=== PATIENT | female | born 1940 | race Caucasian/White ===

== ENCOUNTER → 2016-11-10 | Outpatient (CLI) | payer OTHER, BC | LOC: MMPC 10:00 | PROVIDERS: ATTEND Podiatrist Foot & Ankle Surgery | DX: M79.671 Pain in right foot (principal); M79.672 Pain in left foot; B35.1 Tinea unguium; L60.0 Ingrowing nail; L60.3 Nail dystrophy; I73.9 Peripheral vascular disease, unspecified | CPT/HCPCS: 11720 ×2; 99202; G0463 ==

== ENCOUNTER → 2016-11-17 | Outpatient (CLI) | payer OTHER, BC | LOC: MMPC 11:11 | PROVIDERS: ATTEND Surgery | DX: L85.8 Other specified epidermal thickening (principal); D48.5 Neoplasm of uncertain behavior of skin | CPT/HCPCS: 99212; G0463 ==

== ENCOUNTER 2016-11-25 08:14 | Day surgery (SDC) | payer OTHER, BC ==
[~2016-11-25 08:14] MED LIST: LIDOCAINE HCL 1%/EPI 1:100,000 - 20 ML VIAL ONE; LIDOCAINE W/ SODIUM BICARB 0.5 ML SYR ONE; Lactated Ringers 1,000 ML PRIMARY IV ONE; MIDAZOLAM 5 MG/1 ML ONE; fentaNYL Inj 100 MCG/2 ML VIAL ONE
[2016-11-25] MEDS ORDERED: SODIUM BICARBONATE 8.4% - 50 ML VIAL ONE (08:15)
--- NOTE | 2016-11-25 09:58 | GEN.OPNOTE ---
Operative Note Surgery Date: 11/25/16 Preoperative Diagnosis: Skin lesion base of the neck. Skin lesion dorsum of left hand. Postoperative Diagnosis: Same. Procedure: Excision 1.5 cm skin lesion base of neck. Excision 8 mm skin lesion dorsum of left hand. Surgeon: Chapin Grant MD Anesthesia Provider: Collin Teresa CRNA Anesthesia Type: Local (1% Xylocaine with epinephrine and sodium bicarbonate per Chapin Grant M.D.), MAC Estimated Blood Loss (mL): 1 Fluids: 250 mL of crystalloid. Pathology: Specimen sent to pathology. Indications: Patient has had numerous skin cancers removed. These appear to be skin cancers at the base her neck and on the dorsum of her left hand. There are nodular and bothersome. She would like them removed. Findings: Skin lesions consistent with squamous cell carcinoma. Complications: None. Operative Summary: The patient was taken to the operating suite and placed on the operating table in a supine position with her left hand out on an arm board. She is given appropriate IV sedation by the RINA. A surgical timeout was done. I initially focused on the hand lesion. The area was infiltrated with 1% Xylocaine with epinephrine and bicarbonate. An elliptical excision was accomplished. A second deeper specimen was taken. The base of the wound was cauterized. Single layer skin closure was done with 3-0 Prolene. A Band-Aid was placed. Attention was turned to the neck lesion. The area was infiltrated with 1% Xylocaine with epinephrine and sodium bicarbonate. An elliptical excision was done. Cautery was used to control bleeding. The skin was closed with simple interrupted 3-0 Prolene sutures. A Band-Aid was placed. The patient tolerated the procedure well without complication. She was taken to outpatient surgery in stable condition. All counts were correct.
[2016-11-25 11:42] VITALS: RESP 24; TEMP 98.6
== END 2016-11-25 11:15 | disposition home or self-care (01) ==
LOC: SDSC 08:14
PROVIDERS: ATTEND Surgery
DX: L85.8 Other specified epidermal thickening (principal); L98.8 Other specified disorders of the skin and subcutaneous tissue
CPT/HCPCS: 11422 ×2; 11621 ×2; J2704; J3010; J2250; J7120

== ENCOUNTER → 2016-12-07 | Outpatient (CLI) | payer OTHER, BC | LOC: MMPC 11:11 | PROVIDERS: ATTEND Surgery | DX: Z48.02 Encounter for removal of sutures (principal); L98.8 Other specified disorders of the skin and subcutaneous tissue ==

== ENCOUNTER → 2017-01-16 | Outpatient (CLI) | payer OTHER, BC ==
--- NOTE | 2017-01-16 11:00 | DI ---
Clinical History: Annual Screening Previous Exam: August 27, 2014 Findings: CC and MLO views of both breasts are obtained, and demonstrate scattered fibroglandular elements. Computer aided diagnostics were applied. There is no mass, suspicious cluster of microcalcifications nor areas of architectural distortion. Impression: Normal Mammogram BIRADS: 1: Negative mammogram Recommendations: Annual screening. Note: Breast examination has been discussed and encouraged, and the patient informed to return if the re is any new palpable abnormality in the interval between screening. Overall imaging assessment: Negative mammogram.
== END ==
LOC: MAMMO 09:42
PROVIDERS: ATTEND Nurse Practitioner
DX: Z12.31 Encounter for screening mammogram for malignant neoplasm of breast (principal); N64.4 Mastodynia
CPT/HCPCS: G0202

== ENCOUNTER → 2017-01-19 | Outpatient (CLI) | payer OTHER, BC | LOC: MMPC 10:00 | PROVIDERS: ATTEND Podiatrist Foot & Ankle Surgery | DX: M79.674 Pain in right toe(s) (principal); M79.675 Pain in left toe(s); L60.3 Nail dystrophy; L60.0 Ingrowing nail; I73.9 Peripheral vascular disease, unspecified; B35.1 Tinea unguium | CPT/HCPCS: 11720 ×2; G0463 ==

== ENCOUNTER 2017-06-02 00:21 | Inpatient (IN) ==
[2017-06-02] MEDS ORDERED: ALBUTEROL SULFATE 2.5 MG/3 ML NEB ONE (00:26)
[2017-06-02] MEDS ORDERED: Sodium Chloride 0.9% 1,000 ML PRIMARY IV ONE (00:26)
[2017-06-02 00:33] LABS: Hematocrit [HCT] 38.9 % (37.0-47.0); Hemoglobin [HGB] 11.6 g/dL (12.0-16.0); MEAN CORPUSCULAR HEMOGLOBIN 29.7 PG (27-31); MEAN CORPUSCULAR HGB CONC 29.8 g/dL (33-37); MEAN CORPUSCULAR VOLUME 99.5 FL (81-99); MEAN PLATELET VOLUME 9.7 FL (7.4-12.2); RED BLOOD COUNT 3.91 10^6/uL (4.20-5.40)
--- NOTE | 2017-06-02 00:34 | PDOC ---
Dyspnea HPI - General Chief Complaint: Dyspnea Stated Complaint: SHORTNESS OF BREATH Date Seen by Provider: 06/02/17 Time Seen by Provider: 00:28 Source: POSITIVE: Patient, EMS Exam Limitations: POSITIVE: Clinical condition Treatment Prior to Arrival: REPORTS: Oxygen, Albuterol Neb Treatment, Other ( Solu-Medrol) Nurse's Notes Reviewed & Considered: Yes EMS Report Reviewed & Considered: Verbal - History of Present Illness Initial Comments: 76-year-old with hypoxia. Patient is long term patient was found to have oxygen saturation of 76% on room air. She received a DuoNeb, Solu-Medrol, and nasal cannula oxygen. She is unable to verbalize any history. No history was available from the nursing staff. Minimal history was obtained from review of the report from the long term. It appears she has some type of interstitial lung disease. Further review of systems is unavailable because the patient's inability to verbalize. Body Location Affected: REPORTS: Chest Timing: REPORTS: Unknown Duration: Unknown Severity: Severe Initiating Event: DENIES: Upper Respiratory Illness, Out of Medications, Sports , Exercise, Aspiration, Choking, Allergy, Exposure - Smoke, Exposure - Mold, Exposure - Other Allergen Context: REPORTS: Sleep Exacerbated By: REPORTS: Exertion Similar Symptoms Previously: Yes Recently seen/treated/hospitalized: No Any Prior Injuries Related to Current Complaint?: No - Patient Home Medications Home Medications: Home Medications Aspirin [Aspir 81] 81 mg PO DAILY 09/15/11 Calcium Citrate/Vitamin D3 [Citracal + D Caplet] 1 ea PO DAILY 09/15/11 Albuterol Sulfate [Proventil Hfa] 1 puff INH QID PRN puff 05/23/14 Arformoterol Tartrate [Brovana] 2 puff INH BID ml 05/23/14 Alendronate Sodium [Fosamax] 1 tab ORAL WEEKLY #4 tab 03/12/15 predniSONE Tab [Deltasone Tab] 1 tab PO DAILY tab 03/19/15 Pantoprazole Sodium 1 tab PO DAILY #30 tab 10/30/15 Budesonide Neb Soln [PULMICORT NEB SOLN] 0.5 mg NEB BID #30 ml 01/19/16 Albuterol Neb Soln 0.083% 1 vial INH Q6H vial 01/20/16 Guaifenesin/Dextromethorphan [Mucus Dm 600-30 Mg Tablet] 1 tab PO BID tab 01/19 Potassium Chloride 1 tab PO BID #60 tab 01/20/16 Roflumilast [Daliresp] 1 tab PO QD #30 tab 01/20/16 Trazodone HCl 1 tab PO QHS #30 tab 02/01/16 Citalopram Hydrobromide [Citalopram Hbr] 1 tab PO QD tab 03/11/16 Umeclidinium [place] [Incruse Ellipta] 62.5 mcg INH QD 04/13/16 Lorazepam 1 tab PO BID #90 tab 08/02/16 Theophylline Anhydrous 1 tab PO BID tab 12/14/16 - Patient Allergies Allergies/Adverse Reactions: Allergies 3 Allergy/AdvReac Type Severity Reaction Status Date / Time No Known Allergies Allergy Verified 06/02/17 07:13 Past Medical History - heen HEENT History: Cataracts, Dentures/Partials Additional HEENT History: WEAR GLASSES Cardiovascular History: Denies History Respiratory History: COPD, Shortness of Breath, Home Oxygen Use Additional Respiratory History: 2 L. AT REST Gastrointestinal History: Denies History Genitourinary History: Denies History Endocrine History: Denies History Musculoskeletal History: Arthritis, Back Injury, Other (please comment) Prosthesis or Implant: No Additional Musculoskeletal History: Leg cramps/RUPTURED DISC IN THE LUMBAR REGION OF THE BACK Neurological History: Motion Sickness Blood Disorders: Denies History Psychiatric History: Depression, Anxiety Disorders History of Sexually Transmitted Diseases: No Cancer History: Skin History of MDRO: No History of Other Communicable Diseases: No Alcohol Use: Occasionally In the Past 12 Months, Have Used or Abuse Any Substance: None Previous Surgical History: Yes Type / Date of Surgery: BACK SURGERY/TONSILLECTOMY/ SKIN CA REMOVAL/CATARACTS BOTH EYES Anesthesia Reactions: No Malignant Hyperthermia: No Significant Family History: Cancer, Diabetes ROS - Limitations ROS Limitations: Clinical Condition (Further review of systems unavailable because the patient's inability to verbalize.) Dyspnea Physical Exam - General Appearance General Appearance: REPORTS: No Evidence of Trauma, Anxious, Moderate Distress - HEENT HEENT: POSITIVE: Head Inspection Nml, Eyes Inspection Nml, Ears Inspection Nml, Nose Inspection Nml, Oral/Dental Inspect. Nml, Pharynx Inspect. Nml, PERRL, EOMI - Neck Neck: REPORTS: Normal Inspection - Respiratory Respiratory: REPORTS: Respiratory Distress, Wheezes, Rhonchi, Prolonged Expirations, Accessory Muscle Use, Retractions, Decreased Air Movement - Cardiovascular Cardiovascular: REPORTS: Heart Sounds Normal, Strong Pulses, No Murmur, No Gallop, No Friction Rub, No JVD, Tachycardia Peripheral Pulses: Radial (R): 4+ - Abdomen Abdomen: Soft: (All Quadrants), Normal Bowel Sounds: (All Quadrants), Denies Tenderness: (All Quadrants), No Splenomegaly: (All Quadrants), No Hepatomegaly: (All Quadrants), No Guarding: (All Quadrants), No Rebound: (All Quadrants), No Palpable Pulse: (All Quadrants), No Palpabale Mass: (All Quadrants), No Distention: (All Quadrants), No Rigidity: (All Quadrants) - Skin Skin: REPORTS: Intact, Normal For Race, Warm, Dry, No Rash - Extremities Extremity: Non-Tender: (All Extremities), Normal ROM: (All Extremities), Normal Inspection: (All Extremities), Pelvis Stable: (All Extremities) - Neurological / Psychological Neurological: POSITIVE: Motor Normal, Sensation Normal, Disoriented To Place, Disoriented To Time Dyspnea Progress - Results Reviewed by me Xrays/CTs/US Reviewed by me: Yes Discussed with Radiologist: Yes Lab Results Reviewed by Me: Yes CBC and BMP: 06/02/17 05:55 06/02/17 05:55 EKG Interpreted/Reviewed By Me:: Yes (sinus tachycardia) EKG Interpretation:: POSITIVE: Abnormal EKG - Patient's Progress Pain Medication Addressed: POSITIVE: Not Applicable Re-Examine Time: 01:44 Status: POSITIVE: Improved MDM / ED Course: Evaluated, an IV started, blood drawn and sent to the lab for studies, radiographic and EKG were obtained. Patient received normal saline at 125 mL an hour, albuterol nebulizer treatment, Solu-Medrol in route via EMS, and patient was started on BiPAP. Findings blood gases show a pH of 7.29 with elevated CO2. CBC shows elevated white count of 15.36. CMP shows a CO2 of 36 AST of 41. CRP is elevated at 24, BNP is elevated to 144. Chest x-ray shows a left lower lobe pneumonia. Assessment: Pneumonia. Plan: Admission, IV antibiotics started here in the emergency room including 500 mg of IV azithromycin, 2 g of IV Rocephin. At the time of admission patient 's tachycardia and tachypnea had improved. Air Movement: POSITIVE: Poor Quality Measure Initiative: CP/AMI: POSITIVE: EKG Quality Measure Initiative: CAP: POSITIVE: CXR or CT - Consult Consult (If Yes, Name of Consulting MD & Time Called): Yes (Dr. Simon: 0130 hrs) Consulting MD will see pt:: POSITIVE: [facility] Admit Counseled: POSITIVE: Patient, Family, RE: Lab Results, RE: Radiology Results, RE : DX Patient Care Time - Estimated PCT Patient Care Time (In Minutes): 45 Vital Signs - Recent Vital Signs Vital Signs: Vital Signs (Last 8 hours) Temp Pulse Pulse Resp BP Pulse Ox 06/02/17 02:22 118 H 28 H 133/65 98 06/02/17 01:29 98.0 F 118 H 28 H 98 06/02/17 01:13 118 H 24 99 06/02/17 00:56 113 H 26 H 06/02/17 00:55 114 H 30 H 90 06/02/17 00:45 111 H 28 H 157/76 100 06/02/17 00:25 98.5 F 116 H 36 H 157/76 100 - VS Reviewed Vital Signs Reviewed: Yes Discharge Clinical Impression: Pneumonia Discharge Disposition: Admit to Inpatient Condition: Poor Date Decision to Admit to Inpatient: 06/02/17 Time Decision to Admit to Inpatient: 01:30
[2017-06-02] MEDS ORDERED: ALBUTEROL SULFATE 5 MG/ML-20 ML BOTTLE NEB ONE (00:48)
[2017-06-02 00:51] LABS: BLOOD UREA NITROGEN 18 mg/dL (7-22); BUN/CREATININE RATIO 25.71 (6-20); MAGNESIUM 2.2 mg/dL (1.6-2.4); SERUM ALBUMIN 3.9 g/dL (3.5-4.8)
[2017-06-02] MEDS ORDERED: SODIUM CL 0.9% FOR INH 3 ML NEB NEB ONE (00:53)
[2017-06-02 01:10] LABS: BAND NEUTROPHILS % 4 % (0-10); BASOPHILS % (MANUAL) 0 % (0-1); EOSINOPHILS % (MANUAL) 1 % (0-8); MONOCYTES % (MANUAL) 5 % (0-12); NEUTROPHILS % (MANUAL) 79 % (50-80); PLATELET MORPHOLOGY COMMENT NORMAL MORPHOLOGY (NORM); RBC MORPHOLOGY COMMENT NORMAL MORPHOLOGY (NORM); WBC MORPHOLOGY COMMENT NORMAL MORPHOLOGY (NORM)
--- NOTE | 2017-06-02 01:11 | EKG ---
[address] [place] [address] Measurements Intervals [place] Rate: 114 P: 84 NM: 122 QRS: 93 QRSD: 85 T: 76 QT: 297 QTc: 365 Interpretive Statements SINUS TACHYCARDIA BORDERLINE RIGHT AXIS DEVIATION [QRS AXIS > 90] MODERATE ST DEPRESSION [0.05+ mV ST DEPRESSION] INTERPRETATION BASED ON A DEFAULT AGE OF 40 YEARS Compared to ECG 01/04/2016 14:25:53 ST (T wave) deviation now present T-wave abnormality no longer present Poor R-wave progression no longer present Electronically Signed On 06-02-17 08:48:11 MST by Jose Vernon MD [email or web address]
[2017-06-02] MEDS ORDERED: cefTRIAXone Inj 2 GM in Sodium Chloride 0.9% 100 ML IV ONE (01:29)
--- NOTE | 2017-06-02 01:35 | DI ---
EXAM: XR Chest, 1 View CLINICAL HISTORY: Dyspnea TECHNIQUE: Frontal view of the chest. COMPARISON: Chest radiograph 02/17/13, CT chest 01/04/16 FINDINGS: Lungs: Mild peribronchial opacities in the left lower lobe. Severe emphysema, particularly within the right lung. Chronic interstitial changes. Pleural space: Small right pleural effusion or scarring. No pneumothorax. Heart: Unremarkable. No cardiomegaly. Mediastinum: Unremarkable. Bones/joints: Multilevel degenerative disc changes with scoliosis. Other findings: Old granulomatous changes. IMPRESSION: 1. Findings concerning for left lower lobe peribronchial pneumonia. 2. Small right pleural effusion versus pleural scarring. 3. Severe emphysema.
[2017-06-02 02:16] LABS: VENOUS PH 7.26 (7.32-7.42)
--- NOTE | 2017-06-02 02:34 | PDOC ---
HPI - History of Present Illness Date and Time of Service: 06/02/2017, 0230 Chief Complaint: Not feeling well, hypoxic History of Present Illness: This very pleasant 76-year-old female who has end-stage COPD and emphysema and is been in [facility] for the last year and a half. She was sent in by the care Center just after midnight with profound hypoxia at 75% on her normal oxygen at the skilled nursing. The patient was really not able to provide much of the history, and in fact wasn't really answering a lot of questions initially and was found to have a pH is 7.25, breathing at over 30 times per minute, and was placed on BiPAP initially. Chest x-ray confirmed pneumonia both in the peribronchial area on the left and on my view x-ray probably in the right lower lobe as well. She has extensive emphysema. She has similar episode about a year and a half ago and after that pneumonia in recovery, the patient wanted to go [facility] because of her severe emphysema. She has not lost weight, but apparently has been eating poorly for some time. She may be developing some early dementia according to her son. Her pneumonia was quite severe and when I discussed with the patient that she could potentially from this pneumonia, the patient stated that she was tired and she didn't know for sure if she could maintain her breathing status without her BiPAP even. I advised that we try to treat the pneumonia initially and see how the patient responds over the next 24-48 hours. If no progression, it is likely the patient will not do well. She is a class V pneumonia with over 150 points according to the pneumonia severity index, and is at the CURB-65 score of 3. She was given Rocephin and Zithromax in the emergency room. But I will go ahead and expand that out to cover for healthcare associated pneumonia. I will also start steroids. I think she has a component of severe COPD exacerbation on top of her pneumonia. Again, history was very limited as patient was breathing at a labored rate and could not really provide much of a history because of that. Past Medical History Medical History: 1. COPD on oxygen, this is end-stage. 2. Hypertension. 3. GERD. 4. Small 4 mm nonobstructing right renal calculus Surgical History: Cataract Family History: Reviewed an Not Pertinent Pertinent Family History: I cannot obtain this history because of the patient's severe respiratory distress, respiratory failure, and BiPAP dependence. On my review of the record, apparently Parkinson's diseases in the family. Past Social History: , has 3 sons, lives at [facility]. Does not drink alcohol. Does not currently smoke, but I do not know her prior smoking history. Tobacco Use: Never Smoker In the Past 12 Months, Have Used or Abuse Any of the Following Substance: None Alcohol Use: None Medication / Allergies Home Medications: Home Medications Medication Instructions Recorded Confirmed Type Aspirin [Aspir 81] 81 mg PO DAILY 09/15/11 06/02/17 History Calcium Citrate/Vitamin D3 1 ea PO DAILY 09/15/11 06/02/17 History [Citracal + D Caplet] Albuterol Sulfate [Proventil Hfa] 1 puff INH QID PRN puff 05/23/14 06/02/17 History Arformoterol Tartrate [Brovana] 2 puff INH BID ml 05/23/14 06/02/17 History Alendronate Sodium [Fosamax] 1 tab ORAL WEEKLY #4 tab 03/12/15 06/02/17 History predniSONE Tab [Deltasone Tab] 1 tab PO DAILY tab 03/19/15 06/02/17 History Pantoprazole Sodium 1 tab PO DAILY #30 tab 10/30/15 06/02/17 History Budesonide Neb Soln [PULMICORT NEB 0.5 mg NEB BID #30 ml 01/19/16 06/02/17 Rx SOLN] Albuterol Neb Soln 0.083% 1 vial INH Q6H vial 01/20/16 06/02/17 History Guaifenesin/Dextromethorphan 1 tab PO BID tab 01/20/16 06/02/17 History [Mucus Dm 600-30 Mg Tablet] Potassium Chloride 1 tab PO BID #60 tab 01/20/16 06/02/17 History Roflumilast [Daliresp] 1 tab PO QD #30 tab 01/20/16 06/02/17 History Trazodone HCl 1 tab PO QHS #30 tab 02/01/16 06/02/17 History Citalopram Hydrobromide 1 tab PO QD tab 03/11/16 06/02/17 History [Citalopram Hbr] Umeclidinium [place] [Incruse 62.5 mcg INH QD 04/13/16 06/02/17 History Ellipta] Lorazepam 1 tab PO BID #90 tab 08/02/16 06/02/17 Rx Theophylline Anhydrous 1 tab PO BID tab 12/14/16 06/02/17 History Allergies/Adverse Reactions: Allergies 3 Allergy/AdvReac Type Severity Reaction Status Date / Time No Known Allergies Allergy Verified 06/02/17 00:53 Review of Systems - Review of Systems ROS Unobtainable: Due to Condition (Due to the patient's medical condition, respiratory distress/respiratory failure, pneumonia, and BiPAP dependent at this time, I cannot obtain a review systems.) Exam - Vitals Vital Signs: Vital Signs Temperature 98.0 F Temperature Source Oral Pulse Rate [Pulse Oximeter 118 Left Radial] Respiratory Rate 28 Blood Pressure [RT] 133/65 Pulse Ox 98 Oxygen Delivery Method Bi-PAP Height 5 ft 5 in Weight 100 lb Vital Signs (24 hrs) Temp Pulse Resp BP Pulse Ox 06/02/17 02:22 118 H 28 H 133/65 98 06/02/17 01:29 98.0 F 118 H 28 H 98 06/02/17 01:13 118 H 24 99 06/02/17 00:45 111 H 28 H 157/76 100 06/02/17 00:25 98.5 F 116 H 36 H 157/76 100 - General General Appearance: Severe Distress, Thin - Head Head Exam: Normal Inspection, Normocephalic, Atraumatic - Eye Eye Exam: POSITIVE: No Scleral Icterus - ENT ENT Exam: POSITIVE: Mucous Membranes Dry - Neck Neck Exam: No Tenderness Additional Neck Exam Details: Prominent anterior scalene muscles. - Respiratory Respiratory Exam: POSITIVE: Decreased Breath Sounds, Respiratory Distress - Cardiovascular Cardiovascular Exam: POSITIVE: No Murmur, No Clicks, No Gallops, No Rubs, Tachycardia - GI/Abdominal GI/Abdominal Exam: POSITIVE: Normal Bowel Sounds, Non Tender, Non Distended, Soft - Rectal Rectal Exam: POSITIVE: Deferred - External Exam: POSITIVE: Deferred Exam: POSITIVE: Deferred - Extremities Extremities Exam: POSITIVE: No Edema Present, No Cyanosis Present, Clubbing Present - Neurological Neurological Exam: POSITIVE: Alert, Oriented x 3, No Facial Droop, Speech Intact / Clear, Moves All Extremities Equally Results - Labs CBC and BMP: 06/02/17 00:01 06/02/17 00:01 Additional Lab Results: Laboratory Results 06/02/17 06/02/17 06/02/17 Range/Units 00:01 00:01 00:01 WBC 15.36 H (4.8-10.8) 10^3/uL RBC 3.91 L (4.20-5.40) 10^6/uL Hgb 11.6 L (12.0-16.0) g/dL Hct 38.9 (37.0-47.0) % MCV 99.5 H (81-99) FL MCH 29.7 (27-31) PG MCHC 29.8 L (33-37) g/dL RDW Std Deviation 47.2 (39-50) fL RDW Coeff of [place] 13.2 (11.5-14.5) % Plt Count 243 (140-350) 10*3/uL MPV 9.7 (7.4-12.2) FL Neutrophils % (Manual) 79 (50-80) % Band Neutrophils % 4 (0-10) % Lymphocytes % (Manual) 11 (10-50) % Monocytes % (Manual) 5 (0-12) % Eosinophils % (Manual) 1 (0-8) % Basophils % (Manual) 0 (0-1) % Metamyelocytes % Not Reportable Myelocytes % Not Reportable Promyelocytes % Not Reportable Blast Cells Not Reportable WBC Morphology Comment Normal morphology (NORM) Plt Morphology Comment Normal morphology (NORM) RBC Morph Comment Normal morphology (NORM) D-Dimer 0.96 H (0.00-0.59) mg/L VBG pH (7.32-7.42) VBG pCO2 (45-55) mmHg VBG HCO3 (22-26) mmol/L VBG Base Excess (-2-2) MMOL/L Sodium 141 (135-145) meq/L Potassium 4.8 (3.8-5.2) meq/L Chloride 98 (98-112) meq/L Carbon Dioxide 36 H (23-33) meq/L Anion Gap Pending BUN 18 (7-22) mg/dL Creatinine 0.7 (0.50-1.20) mg/dL Estimated GFR Pending BUN/Creatinine Ratio Pending Glucose 102 (78-110) mg/dL Calculated Osmolality Pending Lactic Acid 1.2 (0.70-2.10) MMOL/L Calcium 9.9 (8.7-10.7) mg/dL Magnesium 2.2 (1.6-2.4) mg/dL Total Bilirubin 0.8 (0.3-1.2) mg/dL AST 41 H (8-39) IU/L ALT 40 (9-52) IU/L Alkaline Phosphatase 100 (38-126) IU/L Troponin I (< 0.040) ng/mL C-Reactive Protein 24.0 H (0.0-0.9) mg/dL NT-Pro-B Natriuret Pep 144 H (0-125) PG/ML Total Protein 7.2 (6.1-8.0) g/dL Albumin 3.9 (3.5-4.8) g/dL Globulin 3.3 (2.50-4.10) g/dL Albumin/Globulin Ratio Pending 06/02/17 06/02/17 Range/Units 00:01 00:37 WBC (4.8-10.8) 10^3/uL RBC (4.20-5.40) 10^6/uL Hgb (12.0-16.0) g/dL Hct (37.0-47.0) % MCV (81-99) FL MCH (27-31) PG MCHC (33-37) g/dL RDW Std Deviation (39-50) fL RDW Coeff of [place] (11.5-14.5) % Plt Count (140-350) 10*3/uL MPV (7.4-12.2) FL Neutrophils % (Manual) (50-80) % Band Neutrophils % (0-10) % Lymphocytes % (Manual) (10-50) % Monocytes % (Manual) (0-12) % Eosinophils % (Manual) (0-8) % Basophils % (Manual) (0-1) % Metamyelocytes % Myelocytes % Promyelocytes % Blast Cells WBC Morphology Comment (NORM) Plt Morphology Comment (NORM) RBC Morph Comment (NORM) D-Dimer (0.00-0.59) mg/L VBG pH 7.26 L (7.32-7.42) VBG pCO2 80 H (45-55) mmHg VBG HCO3 36 H (22-26) mmol/L VBG Base Excess 8 H (-2-2) MMOL/L Sodium (135-145) meq/L Potassium (3.8-5.2) meq/L Chloride (98-112) meq/L Carbon Dioxide (23-33) meq/L Anion Gap BUN (7-22) mg/dL Creatinine (0.50-1.20) mg/dL Estimated GFR BUN/Creatinine Ratio Glucose (78-110) mg/dL Calculated Osmolality Lactic Acid (0.70-2.10) MMOL/L Calcium (8.7-10.7) mg/dL Magnesium (1.6-2.4) mg/dL Total Bilirubin (0.3-1.2) mg/dL AST (8-39) IU/L ALT (9-52) IU/L Alkaline Phosphatase (38-126) IU/L Troponin I 0.027 (< 0.040) ng/mL C-Reactive Protein (0.0-0.9) mg/dL NT-Pro-B Natriuret Pep (0-125) PG/ML Total Protein (6.1-8.0) g/dL Albumin (3.5-4.8) g/dL Globulin (2.50-4.10) g/dL Albumin/Globulin Ratio - EKG Data -: EKG Interpreted by Me Rate: Tachycardia EKG Shows Normal: Sinus Rhythm - Imaging Status: Image Reviewed by Me (Chest x-ray appears consistent with a left-sided peribronchial pneumonia and a right-sided lower lobe pneumonia with a small pleural effusion on the right as well. Severe emphysema.) Assessment and Plan - Patient Problems (1) Respiratory failure, acute Current Visit: Yes Status: Acute Code(s): J96.00 - Acute respiratory failure , unspecified whether with hypoxia or hypercapnia Qualifiers: Respiratory failure complication: hypoxia and hypercapnia Qualified Code(s) : J96.01 - Acute respiratory failure with hypoxia; J96.02 - Acute respiratory failure with hypercapnia; J96.02 - Acute respiratory failure with hypercapnia; J96.02 - Acute respiratory failure with hypercapnia (2) Healthcare-associated pneumonia Current Visit: Yes Status: Acute Code(s): J18.9 - Pneumonia, unspecified organism (3) COPD with exacerbation Current Visit: Yes Status: Acute Code(s): J44.1 - Chronic obstructive pulmonary disease with (acute) exacerbation (4) Hypertension Current Visit: Yes Status: Acute Code(s): I10 - Essential (primary) hypertension (5) History of squamous cell carcinoma Current Visit: Yes Status: Acute Code(s): Z85.89 - Personal history of malignant neoplasm of other organs and systems - Assessment / Plan Additional Assessment/Plan Details: Admit the patient to the intensive care unit. This patient is very ill, hasn't pneumonia severity index of a class V, and CURB-65 score of 3. Her mortality is 15% to 30 days and 30% in hospital, just based on pneumonia scores. Her CRP was recently 0.3 as an outpatient and is now up above 24. She has bandemia. She has BiPAP dependent at this point and I do not think responding to settings of 12 over 5 given her PaCO2 still being in the 70s. Her son, present at bedside, the patient, and myself, discussed the potential care options including initial comfort care, versus admission with antibiotic therapy, BiPAP therapy and monitoring over the next 24-48 hours to see if we can see any improvements and they chose the latter for care initially. Treat for nosocomial/halfway facility or healthcare associated pneumonia. Add vancomycin. Add Zosyn. Start Levaquin. Blood cultures are drawn and are pending. Breathing therapies/BiPAP and will increase to 17 over 5. Respiratory therapy following. Hold several of the patient's medications but start steroids with Solu-Medrol 125 mg IV every 6 hours. Despite aggressive efforts with steroids, IV antibiotics, IV fluids, and BiPAP therapy, it is highly likely that patient could of these issues and it would not be unexpected. I explained this to the son the best that I could, the patient seems to understand this and anxious and "I'm tired" and stated that she did not know if she had it in her to do this. She stated that she cannot breathe at all without the BiPAP at this time. Total critical care time, 45 minutes, no overlap. Patient and her son are in agreement with the plan.
[2017-06-02] MEDS ORDERED: VANCOMYCIN IV ONE (03:38)
[2017-06-02] MEDS ORDERED: ALBUTEROL SULFATE 2.5 MG/3 ML NEB PRN (03:38)
[2017-06-02] MEDS ORDERED: Sodium Chloride 0.9% 1,000 ML PRIMARY IV SCH (03:38)
[2017-06-02] MEDS ORDERED: ONDANSETRON 4 MG/2 ML VIAL IV PRN ×2 (03:38→16:27)
[2017-06-02] MEDS ORDERED: SODIUM CHLORIDE 0.9% IV ONE (03:38)
[2017-06-02] MEDS ORDERED: NORMAL SALINE 10 ML SYRINGE FLUSH IVP PRN ×2 (03:38→16:27)
[2017-06-02] MEDS ORDERED: Vancomycin-PHA to Dose IV PRN (03:38)
[2017-06-02 03:41] LABS: ABG BASE EXCESS 8 MMOL/L (-2-2); ABG OXYGEN SATURATION 97 % (90-100); ABG PCO2 72 MMHG (34-38); ABG PH 7.29 (7.35-7.45); ABG PO2 109 MMHG (65-75); ALLEN TEST Y
[2017-06-02 03:42] LABS: COLLECTION SITE L Rad X2
[2017-06-02] MEDS: methylPREDNISolone 125 MG/2 ML VIAL IVP SCH ×5 (04:43→21:30)
[2017-06-02] MEDS ORDERED: Levofloxacin (Premix) 750 MG/150 ML PIGGYBACK IV SCH (05:00)
[2017-06-02] MEDS: Piperacillin/Tazobactam Inj 4.5 GM in Sodium Chloride 0.9% 100 ML IV SCH ×5 (05:02→21:30)
[2017-06-02] MEDS: IPRATROPIUM/ALBUTEROL SULFATE 3 ML NEB NEB PRN ×4 (06:38→19:18)
[2017-06-02 07:11] LABS: BASOPHILS # (AUTO) 0 10*3/UL; BASOPHILS % (AUTO) 0 % (0-1); EOSINOPHILS # (AUTO) 0 10*3/UL; EOSINOPHILS % (AUTO) 0 % (0-8); Hematocrit [HCT] 30.9 % (37.0-47.0); Hemoglobin [HGB] 9.2 g/dL (12.0-16.0); LYMPHOCYTES # (AUTO) 0.09 10*3/uL; MEAN CORPUSCULAR HEMOGLOBIN 29.9 PG (27-31); MEAN CORPUSCULAR HGB CONC 29.8 g/dL (33-37); MEAN CORPUSCULAR VOLUME 100.3 FL (81-99); MEAN PLATELET VOLUME 9.8 FL (7.4-12.2); MONOCYTES # (AUTO) 0.25 10*3/UL (0.3-0.8); MONOCYTES % (AUTO) 2.3 % (5-15); NEUTROPHILS # (AUTO) 10.32 10*3/UL; NEUTROPHILS % (AUTO) 96.6 % (50-80); RED BLOOD COUNT 3.08 10^6/uL (4.20-5.40)
[2017-06-02 07:15] LABS: PLATELET MORPHOLOGY COMMENT NORMAL MORPHOLOGY (NORM); RBC MORPHOLOGY COMMENT NORMAL MORPHOLOGY (NORM); WBC MORPHOLOGY COMMENT NORMAL MORPHOLOGY (NORM)
[2017-06-02 07:21] LABS: BLOOD UREA NITROGEN 17 mg/dL (7-22); BUN/CREATININE RATIO 28.33 (6-20)
[2017-06-02 09:00] LABS: MAGNESIUM 1.9 mg/dL (1.6-2.4)
[2017-06-02] MEDS ORDERED: Pantoprazole Inj 40 MG in Normal Saline Flush 10 ML IVP SCH (09:00)
[2017-06-02] MEDS ORDERED: ENOXAPARIN SODIUM 30 MG/0.3 ML SYRINGE SUBCUT SCH (09:00)
[2017-06-02] MEDS ORDERED: LORazepam 1 MG TABLET PO SCH (09:00)
[2017-06-02 09:53] LABS: VENOUS PH 7.36 (7.32-7.42)
[2017-06-02] MEDS ORDERED: LIDOCAINE HCL 2 % 10 ML JELLY URO-JECT TOPICAL PRN ×2 (10:11→16:27)
[2017-06-02] MEDS ORDERED: ACETAMINOPHEN 325 MG TABLET PO PRN ×2 (12:21→16:27)
[2017-06-02] MEDS ORDERED: Influenza 17-18 Vaccine (6mo+) Quad 60mcg/0.5ml PF IM ONE (17:00)
[2017-06-02] MEDS ORDERED: Ropinirole Tab 1 MG TAB PO ONE (21:00)
[2017-06-02] MEDS: LORazepam 1 MG TABLET PO SCH (21:30)
[2017-06-02] MEDS ORDERED: Piperacillin/Tazobactam Inj 4.5 GM in Sodium Chloride 0.9% 100 ML IV SCH (22:00)
[2017-06-02] MEDS ORDERED: methylPREDNISolone 125 MG/2 ML VIAL IVP SCH (22:00)
[2017-06-03] MEDS: Sodium Chloride 0.9% 1,000 ML PRIMARY IV SCH ×2 (01:31→05:10)
[2017-06-03] MEDS: methylPREDNISolone 125 MG/2 ML VIAL IVP SCH ×3 (03:54→16:27)
[2017-06-03] MEDS: Piperacillin/Tazobactam Inj 4.5 GM in Sodium Chloride 0.9% 100 ML IV SCH ×3 (03:54→16:47)
[2017-06-03] MEDS ORDERED: Levofloxacin (Premix) 750 MG/150 ML PIGGYBACK IV SCH (05:00)
[2017-06-03] MEDS: IPRATROPIUM/ALBUTEROL SULFATE 3 ML NEB NEB PRN ×3 (06:23→14:36)
[2017-06-03 06:35] LABS: BASOPHILS # (AUTO) 0 10*3/UL; BASOPHILS % (AUTO) 0 % (0-1); EOSINOPHILS # (AUTO) 0 10*3/UL; EOSINOPHILS % (AUTO) 0 % (0-8); Hematocrit [HCT] 30.6 % (37.0-47.0); LYMPHOCYTES # (AUTO) 0.14 10*3/uL; MEAN CORPUSCULAR HGB CONC 29.4 g/dL (33-37); MEAN CORPUSCULAR VOLUME 98.7 FL (81-99); MEAN PLATELET VOLUME 9.6 FL (7.4-12.2); MONOCYTES # (AUTO) 0.26 10*3/UL (0.3-0.8); NEUTROPHILS # (AUTO) 6.05 10*3/UL; NEUTROPHILS % (AUTO) 93.6 % (50-80)
[2017-06-03 06:49] LABS: BLOOD UREA NITROGEN 21 mg/dL (7-22); BUN/CREATININE RATIO 26.25 (6-20)
[2017-06-03 06:59] LABS: PLATELET MORPHOLOGY COMMENT NORMAL MORPHOLOGY (NORM); RBC MORPHOLOGY COMMENT NORMAL MORPHOLOGY (NORM); WBC MORPHOLOGY COMMENT NORMAL MORPHOLOGY (NORM)
[2017-06-03] MEDS ORDERED: ENOXAPARIN SODIUM 30 MG/0.3 ML SYRINGE SUBCUT SCH (09:00)
[2017-06-03] MEDS ORDERED: Pantoprazole Inj 40 MG in Normal Saline Flush 10 ML IVP SCH (09:00)
[2017-06-03] MEDS: LORazepam 1 MG TABLET PO SCH (10:50)
[2017-06-03 12:52] VITALS: BP 135/78; TEMP 98.3
[2017-06-03] MEDS ORDERED: DIAZEPAM 10 MG/2 ML (5 MG/1 ML) CARPUJECT IVP ONE (16:15)
[2017-06-03] MEDS ORDERED: DIAZEPAM 10 MG/2 ML (5 MG/1 ML) CARPUJECT IVP PRN (16:15)
[2017-06-03] MEDS ORDERED: SCOPOLAMINE HYDROBROMIDE 1.5 MG - 1 EACH PATCH TRANSDERM ONE (16:16)
--- NOTE | 2017-06-03 16:22 | PDOC(PROG) ---
Date and Time of Service: 06/03/2017, 1620 Interval History: Patient seen twice today. Discussions with family regarding end-of-life care. Essentially, the patient's shortness breath persists, she is very weak and really is too weak to even get out of bed. She's been able to tolerate nasal cannula oxygen off of BiPAP, but has desaturated frequently into the 80% range on nasal cannula oxygen. She is breathing at a fairly labored rate in the high 20s. After discussion with the patient and the family, the patient states "I'm tired" and she really thinks that it is her time. She does not think she can continue to fight this pneumonia and I am inclined to agree. I don't think she has the total body reserve to fight it. Given all these issues, the patient, family, and myself are all in agreement that treating primary symptoms of respiratory distress, pain, and discomfort are of paramount importance and at this time the family requests stopping therapy for pneumonia. The patient does as well. Objective : Data - Labs CBC and BMP: 06/03/17 06:15 06/03/17 06:15 Additional Lab Results: Laboratory Results 06/02/17 06/02/17 06/02/17 Range/Units 00:01 00:01 00:01 WBC 15.36 H (4.8-10.8) 10^3/uL RBC 3.91 L (4.20-5.40) 10^6/uL Hgb 11.6 L (12.0-16.0) g/dL Hct 38.9 (37.0-47.0) % MCV 99.5 H (81-99) FL MCH 29.7 (27-31) PG MCHC 29.8 L (33-37) g/dL RDW Std Deviation 47.2 (39-50) fL RDW Coeff of [place] 13.2 (11.5-14.5) % Plt Count 243 (140-350) 10*3/uL MPV 9.7 (7.4-12.2) FL Immature Gran % (Auto) (0-5) % Neut % (Auto) (50-80) % Lymph % (Auto) (10-50) % Gordon % (Auto) (5-15) % Eos % (Auto) (0-8) % Baso % (Auto) (0-1) % Immature Gran # (Auto) 10*3/UL Neut # (Auto) 10*3/UL Lymph # (Auto) 10*3/uL Gordon # (Auto) (0.3-0.8) 10*3/UL Eos # (Auto) 10*3/UL Baso # (Auto) 10*3/UL Neutrophils % (Manual) 79 (50-80) % Band Neutrophils % 4 (0-10) % Lymphocytes % (Manual) 11 (10-50) % Monocytes % (Manual) 5 (0-12) % Eosinophils % (Manual) 1 (0-8) % Basophils % (Manual) 0 (0-1) % Metamyelocytes % Not Reportable Myelocytes % Not Reportable Promyelocytes % Not Reportable Blast Cells Not Reportable WBC Morphology Comment Normal morphology (NORM) Plt Morphology Comment Normal morphology (NORM) RBC Morph Comment Normal morphology (NORM) D-Dimer 0.96 H (0.00-0.59) mg/L ABG pH (7.35-7.45) ABG pCO2 (34-38) MMHG ABG pO2 (65-75) MMHG ABG HCO3 (22-26) ABG Total CO2 (23-27) MMOL/L ABG O2 Saturation (90-100) % ABG Base Excess (-2-2) MMOL/L Melvin Test VBG pH (7.32-7.42) VBG pCO2 (45-55) mmHg VBG HCO3 (22-26) mmol/L VBG Base Excess (-2-2) MMOL/L FiO2 Sodium 141 (135-145) meq/L Potassium 4.8 (3.8-5.2) meq/L Chloride 98 (98-112) meq/L Carbon Dioxide 36 H (23-33) meq/L Anion Gap 7 (5-20) BUN 18 (7-22) mg/dL Creatinine 0.7 (0.50-1.20) mg/dL Estimated GFR Not Reportable BUN/Creatinine Ratio 25.71 H (6-20) Glucose 102 (78-110) mg/dL Calculated Osmolality 293.0 H (267-292) mOsm/kg Lactic Acid 1.2 (0.70-2.10) MMOL/L Calcium 9.9 (8.7-10.7) mg/dL Magnesium 2.2 (1.6-2.4) mg/dL Total Bilirubin 0.8 (0.3-1.2) mg/dL AST 41 H (8-39) IU/L ALT 40 (9-52) IU/L Alkaline Phosphatase 100 (38-126) IU/L Troponin I (< 0.040) ng/mL C-Reactive Protein 24.0 H (0.0-0.9) mg/dL NT-Pro-B Natriuret Pep 144 H (0-125) PG/ML Total Protein 7.2 (6.1-8.0) g/dL Albumin 3.9 (3.5-4.8) g/dL Globulin 3.3 (2.50-4.10) g/dL Albumin/Globulin Ratio 1.10 L (1.3-2.0) mg/g 06/02/17 06/02/17 06/02/17 Range/Units 00:01 00:37 02:18 WBC (4.8-10.8) 10^3/uL RBC (4.20-5.40) 10^6/uL Hgb (12.0-16.0) g/dL Hct (37.0-47.0) % MCV (81-99) FL MCH (27-31) PG MCHC (33-37) g/dL RDW Std Deviation (39-50) fL RDW Coeff of [place] (11.5-14.5) % Plt Count (140-350) 10*3/uL MPV (7.4-12.2) FL Immature Gran % (Auto) (0-5) % Neut % (Auto) (50-80) % Lymph % (Auto) (10-50) % Gordon % (Auto) (5-15) % Eos % (Auto) (0-8) % Baso % (Auto) (0-1) % Immature Gran # (Auto) 10*3/UL Neut # (Auto) 10*3/UL Lymph # (Auto) 10*3/uL Gordon # (Auto) (0.3-0.8) 10*3/UL Eos # (Auto) 10*3/UL Baso # (Auto) 10*3/UL Neutrophils % (Manual) (50-80) % Band Neutrophils % (0-10) % Lymphocytes % (Manual) (10-50) % Monocytes % (Manual) (0-12) % Eosinophils % (Manual) (0-8) % Basophils % (Manual) (0-1) % Metamyelocytes % Myelocytes % Promyelocytes % Blast Cells WBC Morphology Comment (NORM) Plt Morphology Comment (NORM) RBC Morph Comment (NORM) D-Dimer (0.00-0.59) mg/L ABG pH 7.29 L (7.35-7.45) ABG pCO2 72 H (34-38) MMHG ABG pO2 109 H (65-75) MMHG ABG HCO3 35 H (22-26) ABG Total CO2 37 H (23-27) MMOL/L ABG O2 Saturation 97 (90-100) % ABG Base Excess 8 H (-2-2) MMOL/L Melvin Test Y VBG pH 7.26 L (7.32-7.42) VBG pCO2 80 H (45-55) mmHg VBG HCO3 36 H (22-26) mmol/L VBG Base Excess 8 H (-2-2) MMOL/L FiO2 40% fio2 via bipap Sodium (135-145) meq/L Potassium (3.8-5.2) meq/L Chloride (98-112) meq/L Carbon Dioxide (23-33) meq/L Anion Gap (5-20) BUN (7-22) mg/dL Creatinine (0.50-1.20) mg/dL Estimated GFR BUN/Creatinine Ratio (6-20) Glucose (78-110) mg/dL Calculated Osmolality (267-292) mOsm/kg Lactic Acid (0.70-2.10) MMOL/L Calcium (8.7-10.7) mg/dL Magnesium (1.6-2.4) mg/dL Total Bilirubin (0.3-1.2) mg/dL AST (8-39) IU/L ALT (9-52) IU/L Alkaline Phosphatase (38-126) IU/L Troponin I 0.027 (< 0.040) ng/mL C-Reactive Protein (0.0-0.9) mg/dL NT-Pro-B Natriuret Pep (0-125) PG/ML Total Protein (6.1-8.0) g/dL Albumin (3.5-4.8) g/dL Globulin (2.50-4.10) g/dL Albumin/Globulin Ratio (1.3-2.0) mg/g 06/02/17 06/02/17 06/02/17 Range/Units 05:55 05:55 05:55 WBC 10.69 (4.8-10.8) 10^3/uL RBC 3.08 L (4.20-5.40) 10^6/uL Hgb 9.2 L (12.0-16.0) g/dL Hct 30.9 L (37.0-47.0) % MCV 100.3 H (81-99) FL MCH 29.9 (27-31) PG MCHC 29.8 L (33-37) g/dL RDW Std Deviation 46.2 (39-50) fL RDW Coeff of [place] 13.0 (11.5-14.5) % Plt Count 200 (140-350) 10*3/uL MPV 9.8 (7.4-12.2) FL Immature Gran % (Auto) 0.3 (0-5) % Neut % (Auto) 96.6 H (50-80) % Lymph % (Auto) 0.8 L (10-50) % Gordon % (Auto) 2.3 L (5-15) % Eos % (Auto) 0 (0-8) % Baso % (Auto) 0 (0-1) % Immature Gran # (Auto) 0.03 10*3/UL Neut # (Auto) 10.32 10*3/UL Lymph # (Auto) 0.09 10*3/uL Gordon # (Auto) 0.25 L (0.3-0.8) 10*3/UL Eos # (Auto) 0 10*3/UL Baso # (Auto) 0 10*3/UL Neutrophils % (Manual) (50-80) % Band Neutrophils % (0-10) % Lymphocytes % (Manual) (10-50) % Monocytes % (Manual) (0-12) % Eosinophils % (Manual) (0-8) % Basophils % (Manual) (0-1) % Metamyelocytes % Myelocytes % Promyelocytes % Blast Cells WBC Morphology Comment Normal morphology (NORM) Plt Morphology Comment Normal morphology (NORM) RBC Morph Comment Normal morphology (NORM) D-Dimer (0.00-0.59) mg/L ABG pH (7.35-7.45) ABG pCO2 (34-38) MMHG ABG pO2 (65-75) MMHG ABG HCO3 (22-26) ABG Total CO2 (23-27) MMOL/L ABG O2 Saturation (90-100) % ABG Base Excess (-2-2) MMOL/L Melvin Test VBG pH (7.32-7.42) VBG pCO2 (45-55) mmHg VBG HCO3 (22-26) mmol/L VBG Base Excess (-2-2) MMOL/L FiO2 Sodium 142 (135-145) meq/L Potassium 4.6 (3.8-5.2) meq/L Chloride 103 (98-112) meq/L Carbon Dioxide 31 (23-33) meq/L Anion Gap 8 (5-20) BUN 17 (7-22) mg/dL Creatinine 0.6 (0.50-1.20) mg/dL Estimated GFR BUN/Creatinine Ratio 28.33 H (6-20) Glucose 156 H (78-110) mg/dL Calculated Osmolality 298.0 H (267-292) mOsm/kg Lactic Acid 0.9 (0.70-2.10) MMOL/L Calcium 8.7 (8.7-10.7) mg/dL Magnesium 1.9 (1.6-2.4) mg/dL Total Bilirubin (0.3-1.2) mg/dL AST (8-39) IU/L ALT (9-52) IU/L Alkaline Phosphatase (38-126) IU/L Troponin I (< 0.040) ng/mL C-Reactive Protein (0.0-0.9) mg/dL NT-Pro-B Natriuret Pep (0-125) PG/ML Total Protein (6.1-8.0) g/dL Albumin (3.5-4.8) g/dL Globulin (2.50-4.10) g/dL Albumin/Globulin Ratio (1.3-2.0) mg/g 06/02/17 06/03/17 06/03/17 Range/Units 09:06 06:15 06:15 WBC 6.46 (4.8-10.8) 10^3/uL RBC 3.10 L (4.20-5.40) 10^6/uL Hgb 9.0 L (12.0-16.0) g/dL Hct 30.6 L (37.0-47.0) % MCV 98.7 (81-99) FL MCH 29.0 (27-31) PG MCHC 29.4 L (33-37) g/dL RDW Std Deviation 44.8 (39-50) fL RDW Coeff of [place] 12.7 (11.5-14.5) % Plt Count 169 (140-350) 10*3/uL MPV 9.6 (7.4-12.2) FL Immature Gran % (Auto) 0.2 (0-5) % Neut % (Auto) 93.6 H (50-80) % Lymph % (Auto) 2.2 L (10-50) % Gordon % (Auto) 4.0 L (5-15) % Eos % (Auto) 0 (0-8) % Baso % (Auto) 0 (0-1) % Immature Gran # (Auto) 0.01 10*3/UL Neut # (Auto) 6.05 10*3/UL Lymph # (Auto) 0.14 10*3/uL Gordon # (Auto) 0.26 L (0.3-0.8) 10*3/UL Eos # (Auto) 0 10*3/UL Baso # (Auto) 0 10*3/UL Neutrophils % (Manual) (50-80) % Band Neutrophils % (0-10) % Lymphocytes % (Manual) (10-50) % Monocytes % (Manual) (0-12) % Eosinophils % (Manual) (0-8) % Basophils % (Manual) (0-1) % Metamyelocytes % Myelocytes % Promyelocytes % Blast Cells WBC Morphology Comment Normal morphology (NORM) Plt Morphology Comment Normal morphology (NORM) RBC Morph Comment Normal morphology (NORM) D-Dimer (0.00-0.59) mg/L ABG pH (7.35-7.45) ABG pCO2 (34-38) MMHG ABG pO2 (65-75) MMHG ABG HCO3 (22-26) ABG Total CO2 (23-27) MMOL/L ABG O2 Saturation (90-100) % ABG Base Excess (-2-2) MMOL/L Melvin Test VBG pH 7.36 (7.32-7.42) VBG pCO2 50 (45-55) mmHg VBG HCO3 29 H (22-26) mmol/L VBG Base Excess 3 H (-2-2) MMOL/L FiO2 Sodium 140 (135-145) meq/L Potassium 4.1 (3.8-5.2) meq/L Chloride 105 (98-112) meq/L Carbon Dioxide 30 (23-33) meq/L Anion Gap 5 (5-20) BUN 21 (7-22) mg/dL Creatinine 0.8 (0.50-1.20) mg/dL Estimated GFR BUN/Creatinine Ratio 26.25 H (6-20) Glucose 135 H (78-110) mg/dL Calculated Osmolality 294.0 H (267-292) mOsm/kg Lactic Acid (0.70-2.10) MMOL/L Calcium 7.9 L (8.7-10.7) mg/dL Magnesium (1.6-2.4) mg/dL Total Bilirubin (0.3-1.2) mg/dL AST (8-39) IU/L ALT (9-52) IU/L Alkaline Phosphatase (38-126) IU/L Troponin I (< 0.040) ng/mL C-Reactive Protein (0.0-0.9) mg/dL NT-Pro-B Natriuret Pep (0-125) PG/ML Total Protein (6.1-8.0) g/dL Albumin (3.5-4.8) g/dL Globulin (2.50-4.10) g/dL Albumin/Globulin Ratio (1.3-2.0) mg/g Objective : Exam - General General Appearance: Mild Distress (Respiratory rates in the high 20s. low 30s on my exam currently.), Thin Additional General Exam Details: Vital Signs (24 hrs) Temp Pulse Pulse Pulse Resp BP Pulse Ox 06/03/17 14:37 82 20 95 06/03/17 14:36 88 20 95 06/03/17 12:52 98.3 F 85 24 135/78 92 06/03/17 10:43 92 28 H 06/03/17 10:42 92 29 H 90 06/03/17 09:00 97.3 F 87 24 142/80 93 06/03/17 07:00 85 06/03/17 06:24 108 H 27 H 06/03/17 06:23 98 24 93 06/03/17 04:53 76 20 124/61 97 06/03/17 04:30 95 06/03/17 03:00 62 06/03/17 01:00 97.9 F 71 16 149/85 95 06/02/17 23:55 76 18 130/70 96 06/02/17 22:00 98.3 F 79 18 130/40 96 06/02/17 21:00 97.6 F 88 88 19 131/74 95 06/02/17 20:00 97.6 F 90 21 124/67 98 06/02/17 19:25 94 06/02/17 19:19 86 22 96 06/02/17 19:18 86 22 96 06/02/17 19:00 97.6 F 100 26 H 143/84 95 06/02/17 16:30 97.6 F 85 25 H 139/89 95 - Eye Eye Exam: No Scleral Icterus - ENT ENT Exam: Mucous Membranes Dry - Respiratory Respiratory Exam: Decreased Breath Sounds, Coarse Breath Sounds, Respiratory Distress, Prolonged Expiratory Phase, Accessory Muscle Use Additional Respiratory Exam Details: Labored breathing. - Cardiovascular Cardiovascular Exam: RRR, No Murmur, No Clicks, No Gallops, No Rubs, JVD - GI/Abdominal GI/Abdominal Exam: Normal Bowel Sounds, Non Tender, Non Distended, Soft - Extremities Extremities Exam: No Edema Present, No Cyanosis Present, Clubbing Present - Neurological Neurological Exam: Alert, Oriented x 3, No Facial Droop, Speech Intact / Clear - Psychiatric Psychiatric Exam: Normal Affect, Normal Mood Assessment and Plan - Patient Problems (1) Respiratory failure, acute Current Visit: Yes Status: Acute Code(s): J96.00 - Acute respiratory failure , unspecified whether with hypoxia or hypercapnia Qualifiers: Respiratory failure complication: hypoxia and hypercapnia Qualified Code(s) : J96.01 - Acute respiratory failure with hypoxia; J96.02 - Acute respiratory failure with hypercapnia; J96.02 - Acute respiratory failure with hypercapnia; J96.02 - Acute respiratory failure with hypercapnia (2) Healthcare-associated pneumonia Current Visit: Yes Status: Acute Code(s): J18.9 - Pneumonia, unspecified organism (3) COPD with exacerbation Current Visit: Yes Status: Acute Code(s): J44.1 - Chronic obstructive pulmonary disease with (acute) exacerbation (4) Hypertension Current Visit: Yes Status: Acute Code(s): I10 - Essential (primary) hypertension (5) History of squamous cell carcinoma Current Visit: Yes Status: Acute Code(s): Z85.89 - Personal history of malignant neoplasm of other organs and systems - Assessment / Plan Additional Assessment/Plan Details: The patient, although on nasal cannula oxygen at this time, still has a moderately distressed respiratory rate in the high 20s to low 30s on my exam currently. She does not have the body reserve, her nutritional status, to fight this pneumonia. She is quite weak and is essentially bedridden at this time with this pneumonia. The patient states that she is tired of therapy overall and does not think that she can do better. She would like to stop therapy and have primary symptoms of respiratory distress and discomfort treated. She notes that the end state could be . She knows that she may very well even with therapy. Her family understands this as well. After hearing all this and discussion, the patient and her family would like to proceed with treatment of primary symptoms of discomfort, respiratory distress, and stop aggressive medical therapies, the patient understands and the family understands that the patient will likely imminently of these issues. This is regardless of anything I can do. Start morphine drip at 10 mg an hour. Valium when necessary for anxiety and seizure Continue steroids at patient's request. When the patient is more comfortable, we'll discontinue telemetry monitoring and oxygen therapy as well. Scopolamine to help control respiratory secretions. All questions for the patient and family were answered at bedside.
[2017-06-03] MEDS: Morphine Syringe 300mg/30ml 300 MG/30 ML PCA.SYRING IV SCH (17:32)
[2017-06-03] MEDS: ALBUTEROL SULFATE 2.5 MG/3 ML NEB PRN ×2 (19:57→23:50)
[2017-06-03] MEDS ORDERED: Ropinirole Tab 1 MG TAB PO PRN (21:00)
[2017-06-04] MEDS: Sodium Chloride 0.9% 1,000 ML PRIMARY IV SCH (00:32)
--- NOTE | 2017-06-04 08:39 | PDOC(PROG) ---
Date and Time of Service: 06/04/2017 8:37 AM Interval History: Subjective Patient seemed to be comfortable. She is on morphine drip. Breathing is shallow. Objective : Data - Labs CBC and BMP: 06/03/17 06:15 06/03/17 06:15 Objective : Exam - General General Appearance: No Acute Distress Additional General Exam Details: Appears comfortable breathing is shallow and slow. Assessment and Plan - Patient Problems (1) Pneumonia Current Visit: Yes Status: Acute Comment: Patient admitted with pneumonia , COPD exacerbation and respiratory failure. The decision yesterday was to put her in comfort care. She is on IV morphine drip she appears to be comfortable. Will continue the same plan. Family is in agreement. Code(s): J18.9 - Pneumonia, unspecified organism
[2017-06-04] MEDS ORDERED: methylPREDNISolone 125 MG/2 ML VIAL IVP SCH (09:00)
[2017-06-04] MEDS: Morphine Syringe 300mg/30ml 300 MG/30 ML PCA.SYRING IV SCH (20:45)
[2017-06-05] MEDS: Sodium Chloride 0.9% 1,000 ML PRIMARY IV SCH (01:42)
[2017-06-05 04:31] VITALS: O2SAT 96
[2017-06-05 08:59] VITALS: RESP 6
--- NOTE | 2017-06-05 09:07 | PDOC(PROG) ---
Date and Time of Service: 06/05/2017 9:06 AM Interval History: Subjective Patient appears comfortable. Breathing is shallow. Objective : Data - Labs CBC and BMP: 06/03/17 06:15 06/03/17 06:15 Objective : Exam - General General Appearance: No Acute Distress, Thin Additional General Exam Details: Comfortable shallow breathing. - Head Head Exam: Normal Inspection - Eye Eye Exam: Normal Appearance Assessment and Plan - Patient Problems (1) Pneumonia Current Visit: Yes Status: Acute Comment: Continue current management patient appeared very comfortable with the current morphine dosage continue same plan. Code(s): J18.9 - Pneumonia, unspecified organism
[2017-06-05] MEDS ORDERED: Sodium Chloride 0.9% 500 ML PRIMARY IV SCH (09:45)
--- NOTE | 2017-06-05 18:33 | DCSUMMARY ---
Hospitalization Summary Admit Date: 06/02/17 Discharge Date: 06/05/17 Hospital Course: diagnosis 1. Healthcare associated pneumonia 2. COPD exacerbation 3. Acute on chronic respiratory failure 4. Hypertension 5. GERD Hospital course This is a 76 years old female with medical history significant for history of end-stage COPD, hypertension who is a [facility] for the last 18 months. She was sent to the hospital from [facility] because of profound hypoxemia. She was found to be in respiratory failure acute on chronic with a pH down to 7.26 and CO2 of 80 she was put on BiPAP. Chest x-ray confirmed pneumonia in the peribronchial area on the left. She had extensive emphysema. Patient was admitted to the hospital was put on BiPAP, antibiotics, bronchodilators and steroid. Patient when she was admitted she was very ill and pneumonia severity index was class V, curb 65 score of 3. Then the next day patient continued to struggle with her breathing after discussion between Dr. Harris, the family and the patient they decided to discontinue active treatment and the patient was put on morphine drip. I saw the patient the next day she appeared comfortable so we continued with the same plan that was initiated by Dr. Harris and the family was in agreement. The patient passed peacefully on 06/05/2017. Laboratory Results 06/02/17 06/02/17 06/02/17 Range/Units 00:01 00:01 00:01 WBC 15.36 H (4.8-10.8) 10^3/uL RBC 3.91 L (4.20-5.40) 10^6/uL Hgb 11.6 L (12.0-16.0) g/dL Hct 38.9 (37.0-47.0) % MCV 99.5 H (81-99) FL MCH 29.7 (27-31) PG MCHC 29.8 L (33-37) g/dL RDW Std Deviation 47.2 (39-50) fL RDW Coeff of [place] 13.2 (11.5-14.5) % Plt Count 243 (140-350) 10*3/uL MPV 9.7 (7.4-12.2) FL Immature Gran % (Auto) (0-5) % Neut % (Auto) (50-80) % Lymph % (Auto) (10-50) % [place] % (Auto) (5-15) % Eos % (Auto) (0-8) % Baso % (Auto) (0-1) % Immature Gran # (Auto) 10*3/UL Neut # (Auto) 10*3/UL Lymph # (Auto) 10*3/uL [place] # (Auto) (0.3-0.8) 10*3/UL Eos # (Auto) 10*3/UL Baso # (Auto) 10*3/UL Neutrophils % (Manual) 79 (50-80) % Band Neutrophils % 4 (0-10) % Lymphocytes % (Manual) 11 (10-50) % Monocytes % (Manual) 5 (0-12) % Eosinophils % (Manual) 1 (0-8) % Basophils % (Manual) 0 (0-1) % Metamyelocytes % Not Reportable Myelocytes % Not Reportable Promyelocytes % Not Reportable Blast Cells Not Reportable WBC Morphology Comment Normal morphology (NORM) Plt Morphology Comment Normal morphology (NORM) RBC Morph Comment Normal morphology (NORM) D-Dimer 0.96 H (0.00-0.59) mg/L ABG pH (7.35-7.45) ABG pCO2 (34-38) MMHG ABG pO2 (65-75) MMHG ABG HCO3 (22-26) ABG Total CO2 (23-27) MMOL/L ABG O2 Saturation (90-100) % ABG Base Excess (-2-2) MMOL/L Melvin Test VBG pH (7.32-7.42) VBG pCO2 (45-55) mmHg VBG HCO3 (22-26) mmol/L VBG Base Excess (-2-2) MMOL/L FiO2 Sodium 141 (135-145) meq/L Potassium 4.8 (3.8-5.2) meq/L Chloride 98 (98-112) meq/L Carbon Dioxide 36 H (23-33) meq/L Anion Gap 7 (5-20) BUN 18 (7-22) mg/dL Creatinine 0.7 (0.50-1.20) mg/dL Estimated GFR Not Reportable BUN/Creatinine Ratio 25.71 H (6-20) Glucose 102 (78-110) mg/dL Calculated Osmolality 293.0 H (267-292) mOsm/kg Lactic Acid 1.2 (0.70-2.10) MMOL/L Calcium 9.9 (8.7-10.7) mg/dL Magnesium 2.2 (1.6-2.4) mg/dL Total Bilirubin 0.8 (0.3-1.2) mg/dL AST 41 H (8-39) IU/L ALT 40 (9-52) IU/L Alkaline Phosphatase 100 (38-126) IU/L Troponin I (< 0.040) ng/mL C-Reactive Protein 24.0 H (0.0-0.9) mg/dL NT-Pro-B Natriuret Pep 144 H (0-125) PG/ML Total Protein 7.2 (6.1-8.0) g/dL Albumin 3.9 (3.5-4.8) g/dL Globulin 3.3 (2.50-4.10) g/dL Albumin/Globulin Ratio 1.10 L (1.3-2.0) mg/g Ur L.pneumophila Ag (Negative) Ur Strep pneumoniae Ag (Negative) 06/02/17 06/02/17 06/02/17 Range/Units 00:01 00:37 02:18 WBC (4.8-10.8) 10^3/uL RBC (4.20-5.40) 10^6/uL Hgb (12.0-16.0) g/dL Hct (37.0-47.0) % MCV (81-99) FL MCH (27-31) PG MCHC (33-37) g/dL RDW Std Deviation (39-50) fL RDW Coeff of [place] (11.5-14.5) % Plt Count (140-350) 10*3/uL MPV (7.4-12.2) FL Immature Gran % (Auto) (0-5) % Neut % (Auto) (50-80) % Lymph % (Auto) (10-50) % [place] % (Auto) (5-15) % Eos % (Auto) (0-8) % Baso % (Auto) (0-1) % Immature Gran # (Auto) 10*3/UL Neut # (Auto) 10*3/UL Lymph # (Auto) 10*3/uL [place] # (Auto) (0.3-0.8) 10*3/UL Eos # (Auto) 10*3/UL Baso # (Auto) 10*3/UL Neutrophils % (Manual) (50-80) % Band Neutrophils % (0-10) % Lymphocytes % (Manual) (10-50) % Monocytes % (Manual) (0-12) % Eosinophils % (Manual) (0-8) % Basophils % (Manual) (0-1) % Metamyelocytes % Myelocytes % Promyelocytes % Blast Cells WBC Morphology Comment (NORM) Plt Morphology Comment (NORM) RBC Morph Comment (NORM) D-Dimer (0.00-0.59) mg/L ABG pH 7.29 L (7.35-7.45) ABG pCO2 72 H (34-38) MMHG ABG pO2 109 H (65-75) MMHG ABG HCO3 35 H (22-26) ABG Total CO2 37 H (23-27) MMOL/L ABG O2 Saturation 97 (90-100) % ABG Base Excess 8 H (-2-2) MMOL/L Melvin Test Y VBG pH 7.26 L (7.32-7.42) VBG pCO2 80 H (45-55) mmHg VBG HCO3 36 H (22-26) mmol/L VBG Base Excess 8 H (-2-2) MMOL/L FiO2 40% fio2 via bipap Sodium (135-145) meq/L Potassium (3.8-5.2) meq/L Chloride (98-112) meq/L Carbon Dioxide (23-33) meq/L Anion Gap (5-20) BUN (7-22) mg/dL Creatinine (0.50-1.20) mg/dL Estimated GFR BUN/Creatinine Ratio (6-20) Glucose (78-110) mg/dL Calculated Osmolality (267-292) mOsm/kg Lactic Acid (0.70-2.10) MMOL/L Calcium (8.7-10.7) mg/dL Magnesium (1.6-2.4) mg/dL Total Bilirubin (0.3-1.2) mg/dL AST (8-39) IU/L ALT (9-52) IU/L Alkaline Phosphatase (38-126) IU/L Troponin I 0.027 (< 0.040) ng/mL C-Reactive Protein (0.0-0.9) mg/dL NT-Pro-B Natriuret Pep (0-125) PG/ML Total Protein (6.1-8.0) g/dL Albumin (3.5-4.8) g/dL Globulin (2.50-4.10) g/dL Albumin/Globulin Ratio (1.3-2.0) mg/g Ur L.pneumophila Ag (Negative) Ur Strep pneumoniae Ag (Negative) 06/02/17 06/02/17 06/02/17 Range/Units 05:55 05:55 05:55 WBC 10.69 (4.8-10.8) 10^3/uL RBC 3.08 L (4.20-5.40) 10^6/uL Hgb 9.2 L (12.0-16.0) g/dL Hct 30.9 L (37.0-47.0) % MCV 100.3 H (81-99) FL MCH 29.9 (27-31) PG MCHC 29.8 L (33-37) g/dL RDW Std Deviation 46.2 (39-50) fL RDW Coeff of [place] 13.0 (11.5-14.5) % Plt Count 200 (140-350) 10*3/uL MPV 9.8 (7.4-12.2) FL Immature Gran % (Auto) 0.3 (0-5) % Neut % (Auto) 96.6 H (50-80) % Lymph % (Auto) 0.8 L (10-50) % [place] % (Auto) 2.3 L (5-15) % Eos % (Auto) 0 (0-8) % Baso % (Auto) 0 (0-1) % Immature Gran # (Auto) 0.03 10*3/UL Neut # (Auto) 10.32 10*3/UL Lymph # (Auto) 0.09 10*3/uL [place] # (Auto) 0.25 L (0.3-0.8) 10*3/UL Eos # (Auto) 0 10*3/UL Baso # (Auto) 0 10*3/UL Neutrophils % (Manual) (50-80) % Band Neutrophils % (0-10) % Lymphocytes % (Manual) (10-50) % Monocytes % (Manual) (0-12) % Eosinophils % (Manual) (0-8) % Basophils % (Manual) (0-1) % Metamyelocytes % Myelocytes % Promyelocytes % Blast Cells WBC Morphology Comment Normal morphology (NORM) Plt Morphology Comment Normal morphology (NORM) RBC Morph Comment Normal morphology (NORM) D-Dimer (0.00-0.59) mg/L ABG pH (7.35-7.45) ABG pCO2 (34-38) MMHG ABG pO2 (65-75) MMHG ABG HCO3 (22-26) ABG Total CO2 (23-27) MMOL/L ABG O2 Saturation (90-100) % ABG Base Excess (-2-2) MMOL/L Melvin Test VBG pH (7.32-7.42) VBG pCO2 (45-55) mmHg VBG HCO3 (22-26) mmol/L VBG Base Excess (-2-2) MMOL/L FiO2 Sodium 142 (135-145) meq/L Potassium 4.6 (3.8-5.2) meq/L Chloride 103 (98-112) meq/L Carbon Dioxide 31 (23-33) meq/L Anion Gap 8 (5-20) BUN 17 (7-22) mg/dL Creatinine 0.6 (0.50-1.20) mg/dL Estimated GFR BUN/Creatinine Ratio 28.33 H (6-20) Glucose 156 H (78-110) mg/dL Calculated Osmolality 298.0 H (267-292) mOsm/kg Lactic Acid 0.9 (0.70-2.10) MMOL/L Calcium 8.7 (8.7-10.7) mg/dL Magnesium 1.9 (1.6-2.4) mg/dL Total Bilirubin (0.3-1.2) mg/dL AST (8-39) IU/L ALT (9-52) IU/L Alkaline Phosphatase (38-126) IU/L Troponin I (< 0.040) ng/mL C-Reactive Protein (0.0-0.9) mg/dL NT-Pro-B Natriuret Pep (0-125) PG/ML Total Protein (6.1-8.0) g/dL Albumin (3.5-4.8) g/dL Globulin (2.50-4.10) g/dL Albumin/Globulin Ratio (1.3-2.0) mg/g Ur L.pneumophila Ag (Negative) Ur Strep pneumoniae Ag (Negative) 06/02/17 06/02/17 06/03/17 Range/Units 09:00 09:06 06:15 WBC (4.8-10.8) 10^3/uL RBC (4.20-5.40) 10^6/uL Hgb (12.0-16.0) g/dL Hct (37.0-47.0) % MCV (81-99) FL MCH (27-31) PG MCHC (33-37) g/dL RDW Std Deviation (39-50) fL RDW Coeff of [place] (11.5-14.5) % Plt Count (140-350) 10*3/uL MPV (7.4-12.2) FL Immature Gran % (Auto) (0-5) % Neut % (Auto) (50-80) % Lymph % (Auto) (10-50) % [place] % (Auto) (5-15) % Eos % (Auto) (0-8) % Baso % (Auto) (0-1) % Immature Gran # (Auto) 10*3/UL Neut # (Auto) 10*3/UL Lymph # (Auto) 10*3/uL [place] # (Auto) (0.3-0.8) 10*3/UL Eos # (Auto) 10*3/UL Baso # (Auto) 10*3/UL Neutrophils % (Manual) (50-80) % Band Neutrophils % (0-10) % Lymphocytes % (Manual) (10-50) % Monocytes % (Manual) (0-12) % Eosinophils % (Manual) (0-8) % Basophils % (Manual) (0-1) % Metamyelocytes % Myelocytes % Promyelocytes % Blast Cells WBC Morphology Comment (NORM) Plt Morphology Comment (NORM) RBC Morph Comment (NORM) D-Dimer (0.00-0.59) mg/L ABG pH (7.35-7.45) ABG pCO2 (34-38) MMHG ABG pO2 (65-75) MMHG ABG HCO3 (22-26) ABG Total CO2 (23-27) MMOL/L ABG O2 Saturation (90-100) % ABG Base Excess (-2-2) MMOL/L Melvin Test VBG pH 7.36 (7.32-7.42) VBG pCO2 50 (45-55) mmHg VBG HCO3 29 H (22-26) mmol/L VBG Base Excess 3 H (-2-2) MMOL/L FiO2 Sodium 140 (135-145) meq/L Potassium 4.1 (3.8-5.2) meq/L Chloride 105 (98-112) meq/L Carbon Dioxide 30 (23-33) meq/L Anion Gap 5 (5-20) BUN 21 (7-22) mg/dL Creatinine 0.8 (0.50-1.20) mg/dL Estimated GFR BUN/Creatinine Ratio 26.25 H (6-20) Glucose 135 H (78-110) mg/dL Calculated Osmolality 294.0 H (267-292) mOsm/kg Lactic Acid (0.70-2.10) MMOL/L Calcium 7.9 L (8.7-10.7) mg/dL Magnesium (1.6-2.4) mg/dL Total Bilirubin (0.3-1.2) mg/dL AST (8-39) IU/L ALT (9-52) IU/L Alkaline Phosphatase (38-126) IU/L Troponin I (< 0.040) ng/mL C-Reactive Protein (0.0-0.9) mg/dL NT-Pro-B Natriuret Pep (0-125) PG/ML Total Protein (6.1-8.0) g/dL Albumin (3.5-4.8) g/dL Globulin (2.50-4.10) g/dL Albumin/Globulin Ratio (1.3-2.0) mg/g Ur L.pneumophila Ag Negative (Negative) Ur Strep pneumoniae Ag Negative (Negative) 06/03/17 Range/Units 06:15 WBC 6.46 (4.8-10.8) 10^3/uL RBC 3.10 L (4.20-5.40) 10^6/uL Hgb 9.0 L (12.0-16.0) g/dL Hct 30.6 L (37.0-47.0) % MCV 98.7 (81-99) FL MCH 29.0 (27-31) PG MCHC 29.4 L (33-37) g/dL RDW Std Deviation 44.8 (39-50) fL RDW Coeff of [place] 12.7 (11.5-14.5) % Plt Count 169 (140-350) 10*3/uL MPV 9.6 (7.4-12.2) FL Immature Gran % (Auto) 0.2 (0-5) % Neut % (Auto) 93.6 H (50-80) % Lymph % (Auto) 2.2 L (10-50) % [place] % (Auto) 4.0 L (5-15) % Eos % (Auto) 0 (0-8) % Baso % (Auto) 0 (0-1) % Immature Gran # (Auto) 0.01 10*3/UL Neut # (Auto) 6.05 10*3/UL Lymph # (Auto) 0.14 10*3/uL [place] # (Auto) 0.26 L (0.3-0.8) 10*3/UL Eos # (Auto) 0 10*3/UL Baso # (Auto) 0 10*3/UL Neutrophils % (Manual) (50-80) % Band Neutrophils % (0-10) % Lymphocytes % (Manual) (10-50) % Monocytes % (Manual) (0-12) % Eosinophils % (Manual) (0-8) % Basophils % (Manual) (0-1) % Metamyelocytes % Myelocytes % Promyelocytes % Blast Cells WBC Morphology Comment Normal morphology (NORM) Plt Morphology Comment Normal morphology (NORM) RBC Morph Comment Normal morphology (NORM) D-Dimer (0.00-0.59) mg/L ABG pH (7.35-7.45) ABG pCO2 (34-38) MMHG ABG pO2 (65-75) MMHG ABG HCO3 (22-26) ABG Total CO2 (23-27) MMOL/L ABG O2 Saturation (90-100) % ABG Base Excess (-2-2) MMOL/L Melvin Test VBG pH (7.32-7.42) VBG pCO2 (45-55) mmHg VBG HCO3 (22-26) mmol/L VBG Base Excess (-2-2) MMOL/L FiO2 Sodium (135-145) meq/L Potassium (3.8-5.2) meq/L Chloride (98-112) meq/L Carbon Dioxide (23-33) meq/L Anion Gap (5-20) BUN (7-22) mg/dL Creatinine (0.50-1.20) mg/dL Estimated GFR BUN/Creatinine Ratio (6-20) Glucose (78-110) mg/dL Calculated Osmolality (267-292) mOsm/kg Lactic Acid (0.70-2.10) MMOL/L Calcium (8.7-10.7) mg/dL Magnesium (1.6-2.4) mg/dL Total Bilirubin (0.3-1.2) mg/dL AST (8-39) IU/L ALT (9-52) IU/L Alkaline Phosphatase (38-126) IU/L Troponin I (< 0.040) ng/mL C-Reactive Protein (0.0-0.9) mg/dL NT-Pro-B Natriuret Pep (0-125) PG/ML Total Protein (6.1-8.0) g/dL Albumin (3.5-4.8) g/dL Globulin (2.50-4.10) g/dL Albumin/Globulin Ratio (1.3-2.0) mg/g Ur L.pneumophila Ag (Negative) Ur Strep pneumoniae Ag (Negative) Exam - Vitals Vital Signs: Vital Signs Temperature 98.3 F Temperature Source Temporal Artery Scan Pulse Rate [Apical] 98 Pulse Rate [Telemetry] 112 Pulse Rate [Pulse Oximeter 87 Left Radial] Pulse Rate 108 Respiratory Rate 6 Blood Pressure [RT] 129/70 Blood Pressure [Left Arm] 135/78 Pulse Ox 96 Oxygen Flow Rate 2 Oxygen Delivery Method Nasal Cannula Height 5 ft 5 in Weight 99 lb 8 oz Patient Problems - Patient Problem List (1) Pneumonia Current Visit: Yes Status: Acute Code(s): J18.9 - Pneumonia, unspecified organism Category: Medical
== END 2017-06-05 18:03 | disposition expired | DRG 194 ==
LOC: ER 00:21 → ICU 02:06 → MED/SURG 15:32
PROVIDERS: ADMIT Family Medicine; ATTEND Family Medicine